=== PATIENT | male | born 1995 ===

== ENCOUNTER 2020-02-05 21:59 | Outpatient (REF) | payer OTHER, SELFPAY ==
[2020-02-09 09:30] LABS: Hepatitis B Surface Ag Negative (Negative)
[2020-02-09 11:09] LABS: HBs Antibody, Quant 9.6 mIU/mL (See Note); Hepatitis B Surface Ab Negative (See Note)
== END 2020-02-05 22:19 ==
LOC: NCHCN 21:59
PROVIDERS: PCP Family Medicine; Visit Provider Nurse Practitioner Community Health
DX: Z11.59 Encounter for screening for other viral diseases (principal); Z83.3 Family history of diabetes mellitus
CPT/HCPCS: 86706; 87340; 86704

== ENCOUNTER 2020-03-17 11:01 | Outpatient (REF) | payer OTHER, SELFPAY ==
[2020-03-19 09:03] LABS: HBs Antibody, Quant >1000.0 mIU/mL (See Note); Hepatitis B Surface Ab Positive (See Note)
[2020-03-19 09:13] LABS: Hepatitis B Surface Ag Negative (Negative)
[2020-03-19 09:56] LABS: Hep B Core Antibody Negative (Negative)
== END 2020-03-17 11:21 ==
LOC: NCHCN 11:01
PROVIDERS: PCP Family Medicine; Visit Provider Nurse Practitioner Community Health
DX: Z11.59 Encounter for screening for other viral diseases (principal); Z01.84 Encounter for antibody response examination
CPT/HCPCS: 86704; 86706; 87340